=== PATIENT | female | born 1980 | race Two or more races ===

== ENCOUNTER 2023-04-09 08:32 | Emergency (ER) | payer OTHER ==
[~2023-04-09] VITALS: Ht 162.6 cm; Wt 95.3 kg
[2023-04-09] MEDS ORDERED: ZESTRIL40 M1 (08:44)
[2023-04-09] MEDS ORDERED: PROZAC20 MG PO (08:44)
[2023-04-09] MEDS ORDERED: BENADRYL ALLERG25 MG (08:45)
[2023-04-09] MEDS ORDERED: AMITRIPTYLINE100 MG PO (08:45)
[2023-04-09] MEDS ORDERED: TRAZODONE HCL100 MG PO (08:46)
[2023-04-09] MEDS ORDERED: ATIVAN0.5 M1 PO (08:46)
[2023-04-09] MEDS ORDERED: RESTORIL30 MG PO (08:46)
== END 2023-04-09 15:49 | disposition home or self-care (01) ==
LOC: ER 08:32
DX: F19.929 Other psychoactive substance use, unspecified with intoxication, unspecified (principal); I10 Essential (primary) hypertension; Z88.6 Allergy status to analgesic agent; Z91.013 Allergy to seafood